=== PATIENT | male | born 1960 | race Caucasian/White ===

== ENCOUNTER 2016-10-20 20:58 | Emergency (ER) | payer MEDICARE, OTHER ==
[2016-10-20 21:20] LABS: BASOPHIL# 0.1 X 10^3uL (0.0-0.1); BASOPHILS 0.6 % (0.0-2.0); EOSINOPHILS 0.5 % (0.0-6.0); EOSINOPHILS# 0.1 X 10^3uL (0.0-0.4); HEMATOCRIT 47.3 % (42.0-54.0); HEMOGLOBIN 16.4 g/dL (14.0-18.0); LYMPHOCYTES 22.4 % (20.0-40.0); LYMPHOCYTES# 2.8 X 10^3uL (0.8-3.8); MEAN CELL VOLUME 85.3 fL (80.0-100.0); MEAN CORPUS. HGB CONCENTRATION 34.6 g/dL (32.0-36.0); MEAN CORPUSCULAR HEMOGLOBIN 29.5 pg (29.0-35.0); MEAN PLATELET VOLUME 9.1 fL (7.4-10.4); MONOCYTES 6.1 % (2.0-10.0); MONOCYTES# 0.8 X 10^3uL (0.2-1.0); NEUTROPHILS 70.4 % (54.0-75.0); NEUTROPHILS# 8.6 X 10^3uL (2.6-6.7); PLATELET COUNT 314 X 10^3uL (130-440); RED BLOOD COUNT 5.54 X 10^6uL (4.20-6.10); RED CELL DISTRIBUTION WIDTH 12.8 % (11.5-14.5); WHITE BLOOD COUNT 12.4 X 10^3uL (3.9-10.7)
[2016-10-20 21:31] LABS: BLOOD UREA NITROGEN 6 mg/dL (9-20); CALCIUM 9.3 mg/dL (8.4-10.2); CHLORIDE 102 mmol/L (98-107); CREATININE 0.8 mg/dL (0.7-1.3); EST GLOMERULAR FILTRATION RATE > 60 mL/min; GLUCOSE 100 mg/dL (70-100); POTASSIUM 2.8 mmol/L (3.5-5.1); SODIUM 143 mmol/L (137-145)
[2016-10-20] MEDS ORDERED: cloNIDine HCL 0.1 MG TABLET PO ONE (21:40)
[2016-10-20] MEDS ORDERED: POTASSIUM EFF 25 MEQ TABLET ONE (21:51)
--- NOTE | 2016-10-20 22:16 | ER NURSING DOCUMENTATION ---
Nurse's Notes [facility] Name:Fermin Simmons Age:56 yrs Sex:Male :1960 Arrival Date:10/20/2016 Time:20:58 BedTrauma-A Private MD:Imelda Phillips Diagnosis:Hypokalemia;Hyperventilation Syndrome Presentation: 10/20 21:05 Presenting complaint: Patient states: sudden numbness and tingling in both hands and mk2 face. Transition of care: Home. Time Last Known Well for patient was one hour ago. No acute neurological deficit is noted. Notified ED Physician of Dr. Bowles notified. Care prior to arrival: Oxygen administered. 21:05 Acuity: LAWSON 3 mk2 21:05 Method Of Arrival: EMS: 410 mk2 Triage Assessment: 21:11 The onset of the patients symptoms was less than three hours ago. General: Appears in mk2 no apparent distress, Behavior is cooperative, pleasant. Pain: Denies pain. Neuro: Level of Consciousness is awake, alert, Oriented to person, place, time, event, Reports numbness hands and face that pt reports is resolving. Cardiovascular: equal and strong pulses. Denies cp. Respiratory: Breath sounds are clear bilaterally. 21:20 EENT: Eyes Pupils are equal and reactive but right pupil is approximately 2 mm larger mk2 than the left. pt states this is new for him. MD aware. . 21:38 Musculoskeletal: Reports Pt has chronic pain in feet and lower legs. Pt uses a walking mk2 stick to walk around normally. Historical: - Allergies: No known drug Allergies; - Home Meds: 1. Clonidine Oral 2. Morphine Oral 3. Valium Oral 4. cannabis - PMHx: ANXIETY; neuropathy; CROHN'S; CVA; - PSHx: BOWEL RESECTION; - Tetanus: < 10 years. - Ebola Screening: : Patient negative for fever greater than or equal to 101.5 degrees Fahrenheit, and additional compatible Ebola Virus Disease symptoms. Patient denies exposure to infectious person. Patient denies travel to an Ebola-affected area in the 21 days before illness onset. No symptoms or risks identified at this time. . - Immunization history: Flu Vaccine < 1 year. - Social history: Smoking status: Patient states was never smoker of tobacco. Patient uses street drugs, marijuana, Patient/guardian denies using alcohol. Screenin:18 Infectious Disease Risk None. Abuse screen: Denies threats or abuse. Nutritional mk2 screening: No deficits noted. Assessment: 21:18 See Triage Assessment done by same RN. 2 Vital Signs: 21:12 BP 168 / 101; Pulse 96; Resp 15; Temp 98.4; Pulse Ox 96% on R/A; Weight 74.84 kg; mk2 Height 6 ft. 1 in. (185.42 cm); Pain 0/10; 22:12 BP 158 / 91; Pulse 69; Resp 16; Pulse Ox 95% on R/A; Pain 0/10; mk2 21:12 Body Mass Index 21.77 (74.84 kg, 185.42 cm) mk2 22:12 Pt ambulates with steady gait. 2 NIH Stroke Scale Scores: 21:19 NIHSS Score: 1 2 ED Course: 21:02 Patient arrived in ED. ma1 21:02 Imelda Phillips MD is Private Physician. ma1 21:05 Rosette Araya, RN is Primary Nurse. 2 21:07 Triage completed. mk2 21:11 Willie Bowles MD is Attending Physician. sc 21:18 Arm band placed on Bed in low position Call Light in Reach Gowned HOB Elevated Side 2 rails up x2. 21:19 Inserted peripheral IV: 20 gauge in right antecubital area and blood collected. By [facility] carlos. 21:22 Valuables Remains with patient. security monitor on. Pulse ox on. NIBP on. Warm blanket mk2 given. 21:40 EKG done. (by ED staff). Reviewed by Willie Bowles MD. em3 21:50 Imelda Phillips MD is Referral Physician. sc 22:16 EKG attached [facility] Administered Medications: 21:19 Drug: NS 0.9% 500 ml; Route: IV; Rate: bolus; Site: right antecubital; mk2 21:36 Follow up: IV Status: Completed infusion; IV Intake: 500ml mk2 21:29 Drug: cloNIDine 0.2 mg; Route: PO; fc 21:39 Follow up: Response: No adverse reaction mk2 21:39 Drug: K-Lyte Effervescent Tablet 50 mEq; {Note: administered by carlos.} Route: PO; 2 21:40 Follow up: Response: No adverse reaction 2 Point of Care Testing: Blood Glucose: 21:12 Blood Glucose: 88 mg/dL; mk2 Ranges: Intake: 21:36 IV: 500ml; Total: 500ml. mk2 Outcome: 21:52 Discharge ordered by . sc 22:12 Discharged to home via wheelchair. mk2 22:12 Condition: good 22:12 Discharge instructions given to patient, Instructed on discharge instructions, follow up and referral plans. medication usage. 22:12 IV D/Colt 22:13 Discharge Assessment: Patient awake, alert and oriented x 3. No cognitive and/or mk2 functional deficits noted. Patient verbalized understanding of disposition instructions. 22:14 Patient left the ED. mk2 10/21 16:47 Discharge F/U Call: Spoke with: patient. Are you having any pain? no. Did your lc discharge instructions answer all of your questions? yes Overall Care on a scale of 1-10 with 10 being the best care, you rate our care as: Other comments: FEELING BETTER, NO QUESTIONS NIH Stroke Scale - NIH Stroke Score Date: 10/20/2016 Time: 21:19 Total Score = 1 1a. Level of Consciousness (LOC) - 0(Alert) 1b. Level of Consciousness (LOC) (Year & Age) - 0(Both) 1c. LOC Commands (Open & Closes Eyes/Superintendent Stations) - 0(Both) 2. Best Gaze (Lateral Gaze Paresis) - 0(Normal) 3. Visual Field Loss - 0(No visual loss) 4. Facial Palsy - 0(Normal) 5a. Left Arm: Motor (10-second hold) - 0(No drift) 5b. Right Arm: Motor (10-second hold) - 0(No drift) 6a. Left Leg: Motor (5-second hold ? always test supine) - 0(No drift) 6b. Right Leg: Motor (5-second hold ? always test supine) - 0(No drift) 7. Limb Ataxia (finger/nose & heel/luciano ? test with eyes open) - 0(Absent) 8. Sensory Loss (pinprick arms/legs/face) - 1(Mild to moderate loss) 9. Best Language: Aphasia (description/naming/reading) - 0(No aphasia) 10. Dysarthria (speech clarity ? read or repeat words) - 0(Normal) 11. Extinction and Inattention (visual/tactile/auditory/spatial/personal) - 0(No abnormality) Initials: mk2 Signatures: Monse Easley RN RN lc Chew, Scott, MD MD sc Kruger, Meg, RN RN mk2 Ahmet Titus floyd fc Addison, Melissa [facility]
--- NOTE | 2016-10-20 22:16 | ER PHYSICIAN DOCUMENTATION ---
Physician Documentation [facility] Name:Fermin Simmons Age:56 yrs Sex:Male :1960 Arrival Date:10/20/2016 Time:20:58 BedTrauma-A Private MD:Imelda Phillips ED Willie Moody Disposition: 10/20/16 21:52 Discharged to Home/Self Care. Impression: Hypokalemia, Hyperventilation Syndrome. - Condition is Good. - Discharge Instructions: HYPOKALEMIA, Anxieties - HYPERVENTILATION SYNDROME. - Medical Reconciliation form form. - Follow up: Imelda Phillips MD; When: As needed; Reason: If symptoms return. - Problem is new. - Symptoms have improved. HPI: 10/20 21:23 This 56 yrs old Male presents to ER via EMS with complaints of S/S of sc Possible Stroke. 21:23 paresthesias on face and both hands after self treating for anxiety with medical sc marijuana and then music therapy with strong vibratory stimulation that has aggravated his neuropathy in the past. Onset: The symptom(s)/episode began/occurred today. Severity of symptoms: At their worst the symptoms were moderate in the emergency department the symptoms have improved markedly. The patient has experienced similar episodes in the past, a few times. gets anxious because of history of stroke 3 years ago, . Historical: - Allergies: No known drug Allergies; - Home Meds: 1. Clonidine Oral 2. Morphine Oral 3. Valium Oral 4. cannabis - PMHx: ANXIETY; neuropathy; CROHN'S; CVA; - PSHx: BOWEL RESECTION; - Tetanus: < 10 years. - Ebola Screening: : Patient negative for fever greater than or equal to 101.5 degrees Fahrenheit, and additional compatible Ebola Virus Disease symptoms. Patient denies exposure to infectious person. Patient denies travel to an Ebola-affected area in the 21 days before illness onset. No symptoms or risks identified at this time. . - Immunization history: Flu Vaccine < 1 year. - Social history: Smoking status: Patient states was never smoker of tobacco. Patient uses street drugs, marijuana, Patient/guardian denies using alcohol. ROS: 21:28 Eyes: Negative for injury, pain, redness, and discharge. sc ENT: Negative for injury, pain, and discharge. Neck: Negative for injury, pain, and swelling. Cardiovascular: Negative for chest pain, palpitations, and edema. Respiratory: Negative for shortness of breath, cough, wheezing, and pleuritic chest pain. Back: Negative for injury and pain. MS/Extremity: Negative for injury and deformity. 21:28 Skin: Negative for injury, rash, and discoloration. sc 21:28 Constitutional: Positive for fatigue. 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 21:28 Neuro: Positive for tingling, Negative for altered mental status, gait disturbance, headache, loss of consciousness, seizure activity, syncope. Exam: Head/Face: Normocephalic, atraumatic. Eyes: Pupils equal round and reactive to light, extra-ocular motions intact. Lids and lashes normal. Conjunctiva and sclera are non-icteric and not injected. Cornea within normal limits. Periorbital areas with no swelling, redness, or edema. ENT: Nares patent. No nasal discharge, no septal abnormalities noted. Tympanic membranes are normal and external auditory canals are clear. Oropharynx with no redness, swelling, or masses, exudates, or evidence of obstruction, uvula midline. Mucous membranes moist. Neck: Trachea midline, no thyromegaly or masses palpated, and no cervical lymphadenopathy. Supple, full range of motion without nuchal rigidity, or vertebral point tenderness. No meningismus. Chest/axilla: Normal chest wall appearance and motion. Nontender with no deformity. No lesions are appreciated. Cardiovascular: Regular rate and rhythm with a normal S1 and S2. No gallops, murmurs, or rubs. Normal PMI, no JVD. No pulse deficits. Respiratory: Lungs have equal breath sounds bilaterally, clear to auscultation and percussion. No rales, rhonchi or wheezes noted. No increased work of breathing, no retractions or nasal flaring. Back: No spinal tenderness. No costovertebral tenderness. Full range of motion. 21:29 Skin: Warm, dry with normal turgor. Normal color with no rashes, no lesions, and no sc evidence of cellulitis. 21:29 Constitutional: The patient appears in no acute distress, alert, awake, comfortable. 21:29 Abdomen/GI: Bowel sounds: normal, Palpation: abdomen is soft and non-tender. 21:29 Neuro: Sensation: tingling. 21:53 Respiratory: the patient does not display signs of respiratory distress, md Respirations: normal, Breath sounds: are normal. Vital Signs: 21:12 BP 168 / 101; Pulse 96; Resp 15; Temp 98.4; Pulse Ox 96% on R/A; Weight 74.84 kg; mk2 Height 6 ft. 1 in. (185.42 cm); Pain 0/10; 22:12 BP 158 / 91; Pulse 69; Resp 16; Pulse Ox 95% on R/A; Pain 0/10; mk2 21:12 Body Mass Index 21.77 (74.84 kg, 185.42 cm) 2 22:12 Pt ambulates with steady gait. 2 NIH Stroke Scale Scores: 21:19 NIHSS Score: 1 2 MDM: 21:11 Patient medically screened. md 21:31 Data reviewed: vital signs, nurses notes, lab test result(s), and as a result, I will md continue to observe the patient, administer IV fluids, NS bolus. Counseling: I had a detailed discussion with the patient and/or guardian regarding: the historical points, exam findings, and any diagnostic results supporting the discharge/admit diagnosis, lab results. 21:50 Medication response: The patient's symptoms have resolved. ED course: Symptoms resolved sc after NS bolus and po K+. Patient requesting discharge.. 21:53 ECG:. md 22:16 EKG attached [facility] 10/20 21:28 Order name: CBC AUTO DIF, MDIF/RMOR IF IND; Complete Time: 21:36 EDMS 10/20 21:36 Interpretation: Normal Except: WHITE BLOOD COUNT 12.4. md 10/20 21:32 Order name: BASIC METABOLIC PANEL; Complete Time: 21:36 EDMS 10/20 21:36 Interpretation: Abnormal: POTASSIUM 2.8. md 10/20 21:39 Order name: EKG - 12 Lead [facility] EC:53 Rate is 74 beats/min. Rhythm is regular. QRS [place] is Normal. ME interval is normal. QRS sc interval is normal. QT interval is normal. No Q waves. T waves are Normal. No ST changes noted. Clinical impression: Normal ECG. Interpreted by me. Reviewed by me. Dispensed Medications: 21:19 Drug: NS 0.9% 500 ml; Route: IV; Rate: bolus; Site: right antecubital; mk2 21:36 Follow up: IV Status: Completed infusion; IV Intake: 500ml mk2 21:29 Drug: cloNIDine 0.2 mg; Route: PO; 21:39 Follow up: Response: No adverse reaction mk2 21:39 Drug: K-Lyte Effervescent Tablet 50 mEq; {Note: administered by carlos.} Route: PO; mk2 21:40 Follow up: Response: No adverse reaction 2 Point of Care Testing: Blood Glucose: 21:12 Blood Glucose: 88 mg/dL; mk2 Ranges: Critical Glucose Levels:Adult <50 mg/dl or >400 mg/dl <40 mg/dl or >180 mg/dl NIH Stroke Scale - NIH Stroke Score Date: 10/20/2016 Time: 21:19 Total Score = 1 1a. Level of Consciousness (LOC) - 0(Alert) 1b. Level of Consciousness (LOC) (Year & Age) - 0(Both) 1c. LOC Commands (Open & Closes Eyes/Rag Sorter) - 0(Both) 2. Best Gaze (Lateral Gaze Paresis) - 0(Normal) 3. Visual Field Loss - 0(No visual loss) 4. Facial Palsy - 0(Normal) 5a. Left Arm: Motor (10-second hold) - 0(No drift) 5b. Right Arm: Motor (10-second hold) - 0(No drift) 6a. Left Leg: Motor (5-second hold ? always test supine) - 0(No drift) 6b. Right Leg: Motor (5-second hold ? always test supine) - 0(No drift) 7. Limb Ataxia (finger/nose & heel/luciano ? test with eyes open) - 0(Absent) 8. Sensory Loss (pinprick arms/legs/face) - 1(Mild to moderate loss) 9. Best Language: Aphasia (description/naming/reading) - 0(No aphasia) 10. Dysarthria (speech clarity ? read or repeat words) - 0(Normal) 11. Extinction and Inattention (visual/tactile/auditory/spatial/personal) - 0(No abnormality) Initials: [facility] Signatures: Willie Bowles MD MD sc Quiana, Rosette, RN RN [facility] carlos russell
== END 2016-10-20 22:15 | disposition home or self-care (01) ==
LOC: ER 20:58
DX: E87.6 Hypokalemia (principal); F45.8 Other somatoform disorders; R53.83 Other fatigue; R20.0 Anesthesia of skin; R29.701 NIHSS score 1; Z86.73 Personal history of transient ischemic attack (TIA), and cerebral infarction without residual deficits; Z79.899 Other long term (current) drug therapy
CPT/HCPCS: 80048; 85025; 93005; 99284; A0425; A0429